=== PATIENT | male | born 1990 | race Caucasian/White ===

== ENCOUNTER 2017-01-19 15:10 | Emergency (ER) | payer SELFPAY ==
[~2017-01-19] VITALS: Ht 182.9 cm; Wt 72.7 kg
[2017-01-19] MEDS ORDERED: IBUPROFEN 800 MG TABLET PO ONE (17:45)
[2017-01-19 18:11] VITALS: BP 134/72
== END 2017-01-19 18:19 | disposition home or self-care (01) ==
LOC: EMS 15:12
DX: S60.222A Contusion of left hand, initial encounter (principal); R03.0 Elevated blood-pressure reading, without diagnosis of hypertension; V49.9XXA Car occupant (driver) (passenger) injured in unspecified traffic accident, initial encounter; Y93.89 Activity, other specified; Y92.413 State road as the place of occurrence of the external cause; Y99.9 Unspecified external cause status
CPT/HCPCS: 99284

== ENCOUNTER 2017-03-06 03:36 | Emergency (ER) | payer SELFPAY ==
[~2017-03-06] VITALS: Ht 182.9 cm; Wt 72.7 kg
[2017-03-06 05:35] VITALS: BP 118/66
== END 2017-03-06 05:39 | disposition home or self-care (01) ==
LOC: EMS 03:39
DX: K14.6 Glossodynia (principal)
CPT/HCPCS: 99284